=== PATIENT | female | born 1965 | race Caucasian/White ===

== ENCOUNTER 2021-08-08 13:45 | Emergency (ER) | payer OTHER ==
[~2021-08-08 13:45] MED LIST: BENTYL10 MG PO; HYDROCODONE-APA1 TAB PO; NEURONTIN100 MG PO; NORCO 5-325 TA1 EACH PO; SPIRIVA 18MCG18 MCG INH; SYMBICORT 80-10.2 GM PO; VENTOLIN HFA IN18 GM INH; VIT B12 PO; VOLTAREN **OUT75 MG PO; ZYRTEC10 MG PO
[2021-08-08 15:40] LABS: BASOPHIL 0.5 % (0-2); EOSINOPHIL 0.2 % (0-5); HCT 46.5 % (37.0-47.0); HGB 15.3 g/dl (12.5-16.0); LYMPHOCYTE 12.2 % (15-48); MCH 31.5 pg (25.0-31.0); MCHC 32.9 g/dL (32.0-36.0); MCV 95.7 fL (78.0-100.0); MONOCYTE 5.6 % (0-12); MPV 11.9 fL (6.0-9.5); NRBC 0; PLT 211 K/uL (150-400); RBC 4.86 M/uL (4.20-5.40); RDW 12.8 % (11.5-14.0); WBC 12.6 K/uL (4.0-10.5)
[2021-08-08 16:14] LABS: ALBUMIN 3.7 g/dL (3.4-5.0); BILIRUBIN - TOTAL 0.8 mg/dL (0.2-1.0); BUN/CREAT RATIO (CALC) 11.8 RATIO; CREATININE 1.02 mg/dL (0.51-0.95); GLOBULIN (CALCULATION) 3.6 g/dL; POTASSIUM 3.9 mmol/L (3.5-5.1); TOTAL PROTEIN 7.3 g/dL (6.4-8.2)
[2021-08-08 16:36] LABS: BILIRUBIN NEGATIVE (NEGATIVE); BLOOD TRACE-INTACT Ery/uL (NEGATIVE); CLARITY CLEAR (CLEAR); COLOR YELLOW (YELLOW); GLUCOSE (U) NORMAL (NORMAL); LEUKOCYTES NEGATIVE Leu/uL (NEGATIVE); NITRITE NEGATIVE (NEGATIVE); PROTEIN NEGATIVE (NEGATIVE); UROBILINOGEN 0.2 mg/dL (0.2-1.0)
[2021-08-08 16:43] LABS: URINARY RBC RARE
== END 2021-08-08 19:31 | disposition home or self-care (01) ==
LOC: FER 13:45
PROVIDERS: Physician Assistant
DX: G43.909 Migraine, unspecified, not intractable, without status migrainosus (principal); N18.9 Chronic kidney disease, unspecified; J44.9 Chronic obstructive pulmonary disease, unspecified; F17.210 Nicotine dependence, cigarettes, uncomplicated; Z88.5 Allergy status to narcotic agent; Z28.311 Partially vaccinated for COVID-19
CPT/HCPCS: 36415; 70450; 80053; 81001; 85025; J1200; J1885; J2405; J7030